=== PATIENT | male | born 1955 | race Caucasian/White ===

== ENCOUNTER 2019-12-26 15:00 | Inpatient (IN) ==
[2019-12-26] MEDS ORDERED: Sennosides 8.6 MG TABLET PO PRN (19:38)
[2019-12-26] MEDS: hydrALAZINE 25 MG TABLET PO SCH (22:31)
[2019-12-26] MEDS: lamoTRIgine 25 MG TABLET PO SCH (22:31)
[2019-12-26] MEDS: Melatonin 3 MG TABLET PO SCH (22:31)
[2019-12-26] MEDS: carvediloL 25 MG TABLET PO SCH (22:36)
[2019-12-27] MEDS: *HR* Heparin 5,000 UNIT/ML VIAL SQ SCH ×4 (00:33→21:13)
[2019-12-27 07:45] LABS: Basophils % 0.2 %; Eosinophils # 0.1 K/mcL (0.0-0.6); Hematocrit 26.5 % (37.5-50.1); Hemoglobin 8.8 g/dL (12.9-16.9); Immature Granulocytes % 0.7 % (0-4); Lymphocytes # 0.6 K/mcL (0.6-4.6); Mean Corpuscular HGB Conc 33.2 g/dL (31.6-35.5); Mean Corpuscular Hemoglobin 32.8 pg (28.0-33.3); Mean Corpuscular Volume 98.9 fL (83.0-100.0); Mean Platelet Volume 8.9 fL (9.4-12.4); Monocytes # 0.9 K/mcL (0.0-1.3); Neutrophils # 2.9 K/mcL (1.6-8.9); Platelet Count 124 K/mcL (140-400); Red Blood Count 2.68 M/mcL (4.19-5.50); Red Cell Distribution Width 18.6 % (11.5-14.5); Segmented Neutrophils % 63.1 %; White Blood Count 4.5 K/mcL (4.3-11.1)
[2019-12-27 08:19] LABS: Activated Partial Thrombo Time 35.9 Seconds (26.0-36.0); Prothrombin Time 11.5 Seconds (9.4-12.1)
[2019-12-27] MEDS ORDERED: D5% in Water 1,000 ML IVC PRN (08:41)
[2019-12-27] MEDS ORDERED: *HR* Dextrose 50 % in Water (Vial) 50 ML VIAL IVP PRN (08:41)
[2019-12-27] MEDS ORDERED: Dextrose Gel 15 GM/37.5 ML TUBE PO PRN ×2 (08:41)
[2019-12-27] MEDS ORDERED: [UNRECOGNIZED DRUG - OTHER] PO SCH (09:00)
[2019-12-27] MEDS: Cyanocobalamin (B-12) 1,000 MCG TABLET PO SCH (09:08)
[2019-12-27] MEDS: carvediloL 25 MG TABLET PO SCH ×2 (09:08→15:49)
[2019-12-27] MEDS: hydrALAZINE 25 MG TABLET PO SCH ×3 (09:08→21:12)
[2019-12-27] MEDS: Folic Acid 1 MG TABLET PO SCH (09:08)
[2019-12-27] MEDS: Multivit/Ca/Min/Fe/FA 1 TAB TABLET PO SCH (09:08)
[2019-12-27] MEDS: Furosemide 40 MG TABLET PO SCH (09:08)
[2019-12-27] MEDS: polyethylene glycoL 3350 17 GM POWD.PACK PO SCH (09:09)
[2019-12-27] MEDS: lamoTRIgine 25 MG TABLET PO SCH ×2 (09:11→21:12)
[2019-12-27] MEDS: Thiamine (B-1) 100 MG TABLET PO SCH (09:11)
[2019-12-27 09:18] LABS: Platelet Estimate Decreased (Normal)
[2019-12-27] MEDS ORDERED: Insulin LISPRO 300 UNITS/3 ML VIAL SQ SCH (11:30)
[2019-12-27] MEDS: [UNRECOGNIZED DRUG - OTHER] PO SCH (12:10)
[2019-12-27] MEDS: Insulin LISPRO 300 UNITS/3 ML VIAL SQ SCH ×2 (15:48→17:34)
[2019-12-27 16:32] LABS: Albumin/Globulin Ratio 0.9 (1.1-2.2); Bilirubin,Total 0.5 mg/dL (0.3-1.0); Calcium 8.4 mg/dL (8.6-10.3); Globulin 3.2 g/dL (2.4-3.5); Magnesium 1.6 mg/dL (1.6-2.6); Potassium 3.5 mEq/L (3.5-5.1); Total Protein 6.2 g/dL (6.4-8.9)
[2019-12-27] MEDS: Melatonin 3 MG TABLET PO SCH (21:11)
[2019-12-28] MEDS: *HR* Heparin 5,000 UNIT/ML VIAL SQ SCH ×3 (05:56→21:45)
[2019-12-28] MEDS: Insulin LISPRO 300 UNITS/3 ML VIAL SQ SCH ×3 (07:43→15:40)
[2019-12-28] MEDS: polyethylene glycoL 3350 17 GM POWD.PACK PO SCH (08:20)
[2019-12-28] MEDS: hydrALAZINE 25 MG TABLET PO SCH ×3 (08:21→21:45)
[2019-12-28] MEDS: carvediloL 25 MG TABLET PO SCH ×2 (08:21→15:55)
[2019-12-28] MEDS: Cyanocobalamin (B-12) 1,000 MCG TABLET PO SCH (08:21)
[2019-12-28] MEDS: Furosemide 40 MG TABLET PO SCH (08:21)
[2019-12-28] MEDS: Folic Acid 1 MG TABLET PO SCH (08:21)
[2019-12-28] MEDS: Multivit/Ca/Min/Fe/FA 1 TAB TABLET PO SCH (08:22)
[2019-12-28] MEDS: Thiamine (B-1) 100 MG TABLET PO SCH (08:22)
[2019-12-28] MEDS: lamoTRIgine 25 MG TABLET PO SCH ×2 (08:22→21:45)
[2019-12-28] MEDS: [UNRECOGNIZED DRUG - OTHER] PO SCH (08:28)
[2019-12-28] MEDS ORDERED: *HR* OxyCODONE/APAP 5/325 TABLET PO PRN (08:38)
[2019-12-28] MEDS ORDERED: *HR* OxyCODONE/APAP 5/325 TABLET PO ONE (11:58)
[2019-12-28] MEDS: *HR* OxyCODONE/APAP 5/325 TABLET PO PRN ×2 (15:55→21:44)
[2019-12-28] MEDS: Melatonin 3 MG TABLET PO SCH (21:45)
[2019-12-29] MEDS: *HR* OxyCODONE/APAP 5/325 TABLET PO PRN ×4 (03:49→22:27)
[2019-12-29] MEDS: *HR* Heparin 5,000 UNIT/ML VIAL SQ SCH ×3 (05:26→21:04)
[2019-12-29] MEDS: Insulin LISPRO 300 UNITS/3 ML VIAL SQ SCH ×3 (07:37→16:11)
[2019-12-29] MEDS: Furosemide 40 MG TABLET PO SCH (09:42)
[2019-12-29] MEDS: carvediloL 25 MG TABLET PO SCH ×2 (09:42→16:01)
[2019-12-29] MEDS: lamoTRIgine 25 MG TABLET PO SCH ×2 (09:42→21:03)
[2019-12-29] MEDS: hydrALAZINE 25 MG TABLET PO SCH ×3 (09:42→21:04)
[2019-12-29] MEDS: Thiamine (B-1) 100 MG TABLET PO SCH (09:42)
[2019-12-29] MEDS: polyethylene glycoL 3350 17 GM POWD.PACK PO SCH (09:43)
[2019-12-29] MEDS: Folic Acid 1 MG TABLET PO SCH (09:43)
[2019-12-29] MEDS: Cyanocobalamin (B-12) 1,000 MCG TABLET PO SCH (09:43)
[2019-12-29] MEDS: Multivit/Ca/Min/Fe/FA 1 TAB TABLET PO SCH (09:43)
[2019-12-29] MEDS: [UNRECOGNIZED DRUG - OTHER] PO SCH (09:48)
[2019-12-29] MEDS ORDERED: MethylPREDNISolone 40 MG/ML VIAL IVP ONE (15:09)
[2019-12-29] MEDS: MethylPREDNISolone 40 MG/ML VIAL IVP SCH (18:17)
[2019-12-29] MEDS ORDERED: *HR* Dextrose 50 % in Water (Vial) 50 ML VIAL IVP PRN (20:54)
[2019-12-29] MEDS ORDERED: Dextrose Gel 15 GM/37.5 ML TUBE PO PRN (20:54)
[2019-12-29] MEDS ORDERED: D5% in Water 1,000 ML IVC PRN (20:54)
[2019-12-29] MEDS ORDERED: Insulin LISPRO 300 UNITS/3 ML VIAL SQ ONE (20:56)
[2019-12-29] MEDS: Melatonin 3 MG TABLET PO SCH (21:04)
[2019-12-30] MEDS ORDERED: Insulin LISPRO 300 UNITS/3 ML VIAL SQ ONE (00:03)
[2019-12-30] MEDS: *HR* Heparin 5,000 UNIT/ML VIAL SQ SCH ×3 (06:35→21:26)
[2019-12-30] MEDS: MethylPREDNISolone 40 MG/ML VIAL IVP SCH ×2 (06:36→16:44)
[2019-12-30] MEDS: *HR* OxyCODONE/APAP 5/325 TABLET PO PRN ×3 (06:49→18:59)
[2019-12-30] MEDS: Thiamine (B-1) 100 MG TABLET PO SCH (07:39)
[2019-12-30] MEDS: polyethylene glycoL 3350 17 GM POWD.PACK PO SCH (07:39)
[2019-12-30] MEDS: Cyanocobalamin (B-12) 1,000 MCG TABLET PO SCH (07:39)
[2019-12-30] MEDS: Multivit/Ca/Min/Fe/FA 1 TAB TABLET PO SCH (07:39)
[2019-12-30] MEDS: Furosemide 40 MG TABLET PO SCH (07:39)
[2019-12-30] MEDS: hydrALAZINE 25 MG TABLET PO SCH ×3 (07:39→21:25)
[2019-12-30] MEDS: carvediloL 25 MG TABLET PO SCH ×2 (07:39→16:44)
[2019-12-30] MEDS: Folic Acid 1 MG TABLET PO SCH (07:39)
[2019-12-30] MEDS: lamoTRIgine 25 MG TABLET PO SCH ×2 (07:40→21:25)
[2019-12-30] MEDS: [UNRECOGNIZED DRUG - OTHER] PO SCH (07:40)
[2019-12-30] MEDS: Insulin LISPRO 300 UNITS/3 ML VIAL SQ SCH ×4 (07:41→21:26)
[2019-12-30] MEDS: Melatonin 3 MG TABLET PO SCH (21:25)
[2019-12-31 06:24] LABS: Hematocrit 26.5 % (37.5-50.1); Immature Granulocytes % 0.8 % (0-4); Lymphocytes # 0.8 K/mcL (0.6-4.6); Mean Corpuscular Hemoglobin 32.6 pg (28.0-33.3); Mean Platelet Volume 9.8 fL (9.4-12.4); Monocytes # 0.5 K/mcL (0.0-1.3); Monocytes % 8.7 %; Neutrophils # 4.9 K/mcL (1.6-8.9); Platelet Count 166 K/mcL (140-400); Red Blood Count 2.76 M/mcL (4.19-5.50); Red Cell Distribution Width 16.7 % (11.5-14.5); Segmented Neutrophils % 78.5 %; White Blood Count 6.2 K/mcL (4.3-11.1)
[2019-12-31] MEDS: *HR* Heparin 5,000 UNIT/ML VIAL SQ SCH ×3 (08:09→20:28)
[2019-12-31] MEDS: [UNRECOGNIZED DRUG - OTHER] PO SCH (08:09)
[2019-12-31] MEDS: Multivit/Ca/Min/Fe/FA 1 TAB TABLET PO SCH (08:10)
[2019-12-31] MEDS: Folic Acid 1 MG TABLET PO SCH (08:10)
[2019-12-31] MEDS: Thiamine (B-1) 100 MG TABLET PO SCH (08:10)
[2019-12-31] MEDS: lamoTRIgine 25 MG TABLET PO SCH ×2 (08:10→20:26)
[2019-12-31] MEDS: Furosemide 40 MG TABLET PO SCH (08:11)
[2019-12-31] MEDS: Cyanocobalamin (B-12) 1,000 MCG TABLET PO SCH (08:11)
[2019-12-31] MEDS: hydrALAZINE 25 MG TABLET PO SCH ×3 (08:11→20:27)
[2019-12-31] MEDS: carvediloL 25 MG TABLET PO SCH ×2 (08:11→16:22)
[2019-12-31] MEDS: polyethylene glycoL 3350 17 GM POWD.PACK PO SCH (08:12)
[2019-12-31] MEDS: Insulin LISPRO 300 UNITS/3 ML VIAL SQ SCH ×4 (08:14→20:26)
[2019-12-31] MEDS: *HR* OxyCODONE/APAP 5/325 TABLET PO PRN (16:17)
[2019-12-31] MEDS: Melatonin 3 MG TABLET PO SCH (20:26)
[2020-01-01] MEDS: *HR* Heparin 5,000 UNIT/ML VIAL SQ SCH ×3 (05:40→21:52)
[2020-01-01 06:46] LABS: Basophils % 0.1 %; Eosinophils % 0.3 %; Hematocrit 28.5 % (37.5-50.1); Hemoglobin 9.5 g/dL (12.9-16.9); Immature Granulocytes % 0.8 % (0-4); Lymphocytes # 2.1 K/mcL (0.6-4.6); Lymphocytes % 29.8 %; Mean Corpuscular HGB Conc 33.3 g/dL (31.6-35.5); Mean Corpuscular Hemoglobin 32.5 pg (28.0-33.3); Mean Corpuscular Volume 97.6 fL (83.0-100.0); Mean Platelet Volume 9.7 fL (9.4-12.4); Monocytes # 0.9 K/mcL (0.0-1.3); Monocytes % 12.6 %; Platelet Count 185 K/mcL (140-400); Red Blood Count 2.92 M/mcL (4.19-5.50); Red Cell Distribution Width 16.6 % (11.5-14.5); Segmented Neutrophils % 56.4 %; White Blood Count 7.2 K/mcL (4.3-11.1)
[2020-01-01] MEDS: Insulin LISPRO 300 UNITS/3 ML VIAL SQ SCH ×4 (07:37→21:52)
[2020-01-01] MEDS: carvediloL 25 MG TABLET PO SCH ×2 (08:14→15:59)
[2020-01-01] MEDS: polyethylene glycoL 3350 17 GM POWD.PACK PO SCH (08:14)
[2020-01-01] MEDS: [UNRECOGNIZED DRUG - OTHER] PO SCH (08:24)
[2020-01-01] MEDS: hydrALAZINE 25 MG TABLET PO SCH ×3 (08:25→21:52)
[2020-01-01] MEDS: Folic Acid 1 MG TABLET PO SCH (08:25)
[2020-01-01] MEDS: Cyanocobalamin (B-12) 1,000 MCG TABLET PO SCH (08:25)
[2020-01-01] MEDS: Multivit/Ca/Min/Fe/FA 1 TAB TABLET PO SCH (08:25)
[2020-01-01] MEDS: Furosemide 40 MG TABLET PO SCH (08:25)
[2020-01-01] MEDS: Thiamine (B-1) 100 MG TABLET PO SCH (08:25)
[2020-01-01] MEDS: lamoTRIgine 25 MG TABLET PO SCH ×2 (08:25→21:51)
[2020-01-01 08:49] LABS: Bilirubin,Total 0.5 mg/dL (0.3-1.0); Calcium 8.3 mg/dL (8.6-10.3); Globulin 3.1 g/dL (2.4-3.5); Total Protein 6.1 g/dL (6.4-8.9)
[2020-01-01] MEDS: *HR* OxyCODONE/APAP 5/325 TABLET PO PRN ×2 (09:18→17:22)
[2020-01-01] MEDS ORDERED: Colchicine 0.6 MG TABLET PO ONE (14:45)
[2020-01-01] MEDS ORDERED: PrednisoLONE Oral Soln 15 MG/5 ML UDC PO ONE (14:46)
[2020-01-01] MEDS: Ibuprofen 600 MG TABLET PO SCH (16:00)
[2020-01-01] MEDS: Melatonin 3 MG TABLET PO SCH (21:51)
[2020-01-01] MEDS: Colchicine 0.6 MG TABLET PO SCH (21:51)
[2020-01-02] MEDS: Ibuprofen 600 MG TABLET PO SCH ×3 (01:37→17:16)
[2020-01-02] MEDS: *HR* Heparin 5,000 UNIT/ML VIAL SQ SCH ×3 (05:51→20:42)
[2020-01-02] MEDS: Multivit/Ca/Min/Fe/FA 1 TAB TABLET PO SCH (08:22)
[2020-01-02] MEDS: Furosemide 40 MG TABLET PO SCH (08:22)
[2020-01-02] MEDS: PrednisoLONE Oral Soln 15 MG/5 ML UDC PO SCH (08:22)
[2020-01-02] MEDS: Colchicine 0.6 MG TABLET PO SCH ×2 (08:23→20:41)
[2020-01-02] MEDS: Folic Acid 1 MG TABLET PO SCH (08:24)
[2020-01-02] MEDS: Insulin LISPRO 300 UNITS/3 ML VIAL SQ SCH ×4 (08:24→20:43)
[2020-01-02] MEDS: Thiamine (B-1) 100 MG TABLET PO SCH (08:24)
[2020-01-02] MEDS: hydrALAZINE 25 MG TABLET PO SCH ×3 (08:24→20:41)
[2020-01-02] MEDS: carvediloL 25 MG TABLET PO SCH ×2 (08:24→17:15)
[2020-01-02] MEDS: Cyanocobalamin (B-12) 1,000 MCG TABLET PO SCH (08:24)
[2020-01-02] MEDS: lamoTRIgine 25 MG TABLET PO SCH ×2 (08:24→20:42)
[2020-01-02] MEDS: polyethylene glycoL 3350 17 GM POWD.PACK PO SCH (08:25)
[2020-01-02] MEDS: [UNRECOGNIZED DRUG - OTHER] PO SCH (08:25)
[2020-01-02] MEDS ORDERED: Ondansetron 4 MG/2 ML VIAL ONE (16:20)
[2020-01-02] MEDS: Ondansetron 4 MG/2 ML VIAL IVP PRN ×2 (16:24→16:30)
[2020-01-02] MEDS: Melatonin 3 MG TABLET PO SCH (20:41)
[2020-01-03] MEDS: Ibuprofen 600 MG TABLET PO SCH ×3 (00:09→16:38)
[2020-01-03 05:22] LABS: Basophils % 0.1 %; Eosinophils # 0.1 K/mcL (0.0-0.6); Eosinophils % 0.4 %; Hematocrit 34.5 % (37.5-50.1); Hemoglobin 11.3 g/dL (12.9-16.9); Immature Granulocytes % 0.7 % (0-4); Lymphocytes # 2.5 K/mcL (0.6-4.6); Lymphocytes % 18.3 %; Mean Corpuscular HGB Conc 32.8 g/dL (31.6-35.5); Mean Corpuscular Hemoglobin 32.4 pg (28.0-33.3); Mean Corpuscular Volume 98.9 fL (83.0-100.0); Mean Platelet Volume 9.5 fL (9.4-12.4); Monocytes # 1.1 K/mcL (0.0-1.3); Monocytes % 8.3 %; Platelet Count 226 K/mcL (140-400); Red Blood Count 3.49 M/mcL (4.19-5.50); Segmented Neutrophils % 72.2 %; White Blood Count 13.4 K/mcL (4.3-11.1)
[2020-01-03 05:49] LABS: Neutrophils # 9.7 K/mcL (1.6-8.9)
[2020-01-03 05:53] LABS: Calcium 8.8 mg/dL (8.6-10.3); Magnesium 1.6 mg/dL (1.6-2.6); Potassium 3.5 mEq/L (3.5-5.1)
[2020-01-03] MEDS: *HR* Heparin 5,000 UNIT/ML VIAL SQ SCH ×3 (06:40→20:36)
[2020-01-03] MEDS: Insulin LISPRO 300 UNITS/3 ML VIAL SQ SCH ×4 (08:54→20:38)
[2020-01-03] MEDS: PrednisoLONE Oral Soln 15 MG/5 ML UDC PO SCH (08:56)
[2020-01-03] MEDS: Folic Acid 1 MG TABLET PO SCH (08:56)
[2020-01-03] MEDS: [UNRECOGNIZED DRUG - OTHER] PO SCH (08:56)
[2020-01-03] MEDS: Thiamine (B-1) 100 MG TABLET PO SCH (08:57)
[2020-01-03] MEDS: Furosemide 40 MG TABLET PO SCH (08:57)
[2020-01-03] MEDS: Colchicine 0.6 MG TABLET PO SCH ×2 (08:57→20:35)
[2020-01-03] MEDS: Cyanocobalamin (B-12) 1,000 MCG TABLET PO SCH (08:57)
[2020-01-03] MEDS: lamoTRIgine 25 MG TABLET PO SCH ×2 (08:57→20:35)
[2020-01-03] MEDS: Multivit/Ca/Min/Fe/FA 1 TAB TABLET PO SCH (08:57)
[2020-01-03] MEDS: carvediloL 25 MG TABLET PO SCH ×2 (08:57→16:38)
[2020-01-03] MEDS: hydrALAZINE 25 MG TABLET PO SCH ×3 (08:58→20:35)
[2020-01-03] MEDS: polyethylene glycoL 3350 17 GM POWD.PACK PO SCH (09:04)
[2020-01-03] MEDS: Melatonin 3 MG TABLET PO SCH (20:34)
[2020-01-04] MEDS: *HR* Heparin 5,000 UNIT/ML VIAL SQ SCH ×3 (06:02→21:34)
[2020-01-04] MEDS: Insulin LISPRO 300 UNITS/3 ML VIAL SQ SCH ×4 (07:28→21:34)
[2020-01-04] MEDS: lamoTRIgine 25 MG TABLET PO SCH ×2 (08:29→21:33)
[2020-01-04] MEDS: Furosemide 40 MG TABLET PO SCH (08:29)
[2020-01-04] MEDS: PrednisoLONE Oral Soln 15 MG/5 ML UDC PO SCH (08:29)
[2020-01-04] MEDS: Multivit/Ca/Min/Fe/FA 1 TAB TABLET PO SCH (08:29)
[2020-01-04] MEDS: hydrALAZINE 25 MG TABLET PO SCH ×3 (08:30→21:33)
[2020-01-04] MEDS: carvediloL 25 MG TABLET PO SCH ×2 (08:30→16:10)
[2020-01-04] MEDS: Folic Acid 1 MG TABLET PO SCH (08:30)
[2020-01-04] MEDS: Colchicine 0.6 MG TABLET PO SCH ×2 (08:30→21:33)
[2020-01-04] MEDS: Cyanocobalamin (B-12) 1,000 MCG TABLET PO SCH (08:30)
[2020-01-04] MEDS: Thiamine (B-1) 100 MG TABLET PO SCH (08:30)
[2020-01-04] MEDS: [UNRECOGNIZED DRUG - OTHER] PO SCH (08:31)
[2020-01-04] MEDS: polyethylene glycoL 3350 17 GM POWD.PACK PO SCH (08:32)
[2020-01-04] MEDS: Melatonin 3 MG TABLET PO SCH (21:33)
[2020-01-05] MEDS: *HR* Heparin 5,000 UNIT/ML VIAL SQ SCH ×3 (06:20→21:58)
[2020-01-05] MEDS: PrednisoLONE Oral Soln 15 MG/5 ML UDC PO SCH (08:15)
[2020-01-05] MEDS: Thiamine (B-1) 100 MG TABLET PO SCH (08:15)
[2020-01-05] MEDS: Furosemide 40 MG TABLET PO SCH (08:15)
[2020-01-05] MEDS: lamoTRIgine 25 MG TABLET PO SCH ×2 (08:16→21:59)
[2020-01-05] MEDS: carvediloL 25 MG TABLET PO SCH ×2 (08:16→17:18)
[2020-01-05] MEDS: Folic Acid 1 MG TABLET PO SCH (08:16)
[2020-01-05] MEDS: hydrALAZINE 25 MG TABLET PO SCH ×3 (08:16→21:58)
[2020-01-05] MEDS: Cyanocobalamin (B-12) 1,000 MCG TABLET PO SCH (08:16)
[2020-01-05] MEDS: Multivit/Ca/Min/Fe/FA 1 TAB TABLET PO SCH (08:16)
[2020-01-05] MEDS: [UNRECOGNIZED DRUG - OTHER] PO SCH (08:17)
[2020-01-05] MEDS: polyethylene glycoL 3350 17 GM POWD.PACK PO SCH (08:17)
[2020-01-05] MEDS: Insulin LISPRO 300 UNITS/3 ML VIAL SQ SCH ×4 (08:17→21:59)
[2020-01-05 13:27] LABS: Adenovirus F 40/41 PCR Not detected (Not detect); Astrovirus PCR Not detected (Not detect); C.difficile Toxin A/B Gene PCR Not detected (Not detect); Campylobacter by PCR Not detected (Not detect); Cryptosporidium by PCR Not detected (Not detect); Cyclospora cayetanensis PCR Not detected (Not detect); E. coli O157 by PCR Not detected (Not detect); Entamoeba histolytica PCR Not detected (Not detect); Enteroaggregative E.coli(EAEC) Not detected (Not detect); Enteropathogenic E.coli(EPEC) Not detected (Not detect); Enterotoxigenic E.coli (ETEC) Not detected (Not detect); Giardia lamblia PCR Not detected (Not detect); Norovirus GI/GII PCR Not detected (Not detect); Plesiomonas shigelloides PCR Not detected (Not detect); Rotavirus A PCR Not detected (Not detect); Salmonella PCR Not detected (Not detect); Sapovirus PCR Not detected (Not detect); Shig/EnteroinvasiveE coli EIEC Not detected (Not detect); Shigalike tox-prod E coli STEC Not detected (Not detect); Vibrio PCR Not detected (Not detect); Vibrio cholerae PCR Not detected (Not detect); Yersinia enterocolitica PCR Not detected (Not detect)
[2020-01-05] MEDS: Melatonin 3 MG TABLET PO SCH (21:59)
[2020-01-06] MEDS: *HR* Heparin 5,000 UNIT/ML VIAL SQ SCH (06:40)
[2020-01-06 06:56] VITALS: BP 168/76
[2020-01-06 07:20] LABS: Hematocrit 32.5 % (37.5-50.1); Hemoglobin 10.8 g/dL (12.9-16.9); Mean Corpuscular HGB Conc 33.2 g/dL (31.6-35.5); Mean Corpuscular Hemoglobin 31.9 pg (28.0-33.3); Mean Corpuscular Volume 95.9 fL (83.0-100.0); Mean Platelet Volume 10.2 fL (9.4-12.4); Platelet Count 217 K/mcL (140-400); Red Blood Count 3.39 M/mcL (4.19-5.50); Red Cell Distribution Width 14.8 % (11.5-14.5); White Blood Count 7.5 K/mcL (4.3-11.1)
[2020-01-06 07:32] LABS: Albumin 3.4 g/dL (3.5-5.7); Albumin/Globulin Ratio 1.2 (1.1-2.2); Bilirubin,Total 0.5 mg/dL (0.3-1.0); Calcium 8.4 mg/dL (8.6-10.3); Globulin 2.9 g/dL (2.4-3.5); Magnesium 1.4 mg/dL (1.6-2.6); Potassium 3.1 mEq/L (3.5-5.1); Total Protein 6.3 g/dL (6.4-8.9)
[2020-01-06] MEDS: Insulin LISPRO 300 UNITS/3 ML VIAL SQ SCH (07:38)
[2020-01-06] MEDS: Cyanocobalamin (B-12) 1,000 MCG TABLET PO SCH (09:50)
[2020-01-06] MEDS: carvediloL 25 MG TABLET PO SCH (09:50)
[2020-01-06] MEDS: polyethylene glycoL 3350 17 GM POWD.PACK PO SCH (09:50)
[2020-01-06] MEDS: hydrALAZINE 25 MG TABLET PO SCH (09:50)
[2020-01-06] MEDS: Folic Acid 1 MG TABLET PO SCH (09:50)
[2020-01-06] MEDS: Multivit/Ca/Min/Fe/FA 1 TAB TABLET PO SCH (09:50)
[2020-01-06] MEDS: Furosemide 40 MG TABLET PO SCH (09:50)
[2020-01-06] MEDS: PrednisoLONE Oral Soln 15 MG/5 ML UDC PO SCH (09:56)
[2020-01-06] MEDS: lamoTRIgine 25 MG TABLET PO SCH (09:56)
[2020-01-06] MEDS: [UNRECOGNIZED DRUG - OTHER] PO SCH (09:57)
[2020-01-06] MEDS: Thiamine (B-1) 100 MG TABLET PO SCH (09:58)
== END 2020-01-06 10:54 | disposition home or self-care (01) | DRG 559 ==
LOC: INPPIK 15:00
PROVIDERS: ADMIT Family Medicine; ATTEND Family Medicine